=== PATIENT | male | born 1975 | race Two or more races ===

== ENCOUNTER 2024-08-12 12:53 | Inpatient (IN) | payer OTHER, SELFPAY ==
[2024-08-12] VITALS (11 sets, daily range): BP systolic 117–148; BP diastolic 90–115; BMI 26.8
[2024-08-12 11:53] LABS: % Basophils 0.5 % (0-2); % Eosinophils 0.7 % (0-6); % Immature Granulocytes 0.5 % (0-0.5); % Lymphocytes 8.9 % (20.5-51.1); % Monocytes 5.4 % (1.7-9.3); Absolute Basophils 0.1 10^3/uL (0-0.2); Absolute Eosinophils 0.1 10^3/uL (0-0.7); Absolute Immature Granulocytes 0.1 10^3/uL (0-0.05); Absolute Monocytes 0.6 10^3/uL (0.1-0.6); Absolute Neutrophils 9.8 10^3/uL (1.4-6.5); Hematocrit 49.3 % (39.0-52.0); Hemoglobin 16.4 g/dL (13.0-18.0); Mean Corp Hgb Conc. 33.3 g/dL (33.0-37.0); Mean Corpuscular Hgb 26.9 pg (27.0-31.0); Mean Platelet Volume 11.9 fL (7.4-10.4); Nucleated Red Blood Cells % 0 % (-); Platelet Count 233 10^3/uL (130-400); Red Blood Cell Count 6.09 10^6/uL (4.70-6.10); Red Cell Dist. Width 13.4 % (11.5-14.5); White Blood Cell Count 11.6 10^3/uL (4.8-10.8)
--- NOTE | 2024-08-12 11:53 | HPS.HSE ---
Family Physician
-
Family Physician: [facility] (Katie Serrano MD)
Chief Complaint
-
Chest pain/Inferior STEMI
History of Present Illness
48 yo male h/o asthma, non smoker, no family history of premature CAD who woke with sudden onset of chest pain around 7am, no other associated symptoms. He thought it was indigestion but pain persisted and he presented to the ED with 4/10 chest
pain. EKG with inferior MILES, STEMI alert activated. He was given Heparin, Brilinta, ASA and brought urgently to the cheesemaking laborer.
Medical History
Past Medical History
Past Medical History: Reports Asthma
Past Surgical History: Reports Orthopedic (R arm surgery for fracture @14) and Other (nasal polyp surgery)
Social History
Tobacco: Non-smoker
Alcohol: Occasional
Drug: None
Personal:
Living: With Family
Family History
Family History: Not pertinent
Allergies / Home Medications
Allergies reflects when Allergies were last updated in [facility].
Home Medications with original date entered in [facility]
Allergy/Medication List:
Allergies
Allergy/AdvReac Type Severity Reaction Status Date / Time
No Known Allergies Allergy Unverified 08/12/24 11:38
�Medication �Instructions �Recorded �Confirmed �Type
budesonide-formoterol HFA 80 2 puff inhalation BID 08/12/24 08/12/24 History
mcg-4.5 mcg/actuation aerosol
inhaler (Symbicort)
montelukast 10 mg tablet 10 mg PO DAILY 08/12/24 08/12/24 History
Review of Systems
-
Cardiac: Reports Chest Pain (09/10 on arrival to cheesemaking laborer)
Physical Exam
Vital Signs
Vital Signs
Temp Pulse Resp BP Pulse Ox
98.7 F 98 18 148/115 100
08/12/24 11:38 08/12/24 11:38 08/12/24 11:38 08/12/24 11:38 08/12/24 11:38
Physical Exam
General: Conversant (full exam deferred as being prepped and draped on cheesemaking laborer table for urgent procedure)
Laboratory Results
-
Pending
Data Reviewed
-
Medical Tests (Nuc Med, Echo, EKG etc): Report Reviewed by me
Impression/Plan
-
IMPRESSION:
Acute inferior STEMI
post PCI mid RCA 08/12/24
Elevated LFT's
Elevated glucose
Asthma
h/o nasal polyp surgery
PLAN:
Admit IVU post PCI
serial troponin to peak
Echo in am
trend LFT's
Check A1c
DAPT ASA/Brilinta (CM to eval cost)
initiate low dose BB and ACEi/ARB based on Echo
check CVE, initiate high intensity statin therapy
Cardiac rehab c/s
f/u DCA 2-4 weeks
continue to monitor on tele 48 hours
[2024-08-12 12:03] LABS: PT 12.7 Sec (11.4-14.6)
[2024-08-12 12:06] LABS: ALT (SGPT) 65 U/L (0-50); AST (SGOT) 117 U/L (17-59); Albumin 4.7 g/dl (3.5-5.0); Alkaline Phosphatase 90 U/L (38-126); Blood Urea Nitrogen 16 mg/dl (9-20); Calcium 9.7 mg/dl (8.4-10.2); Carbon Dioxide 23 mmol/L (22-30); Chloride 103 mmol/L (98-107); Estimated Creatinine Clearance 94 ml/min; Glucose 132 mg/dl (70-99); Potassium 4.4 mmol/L (3.5-5.1); Sodium 135 mmol/L (135-145); Total Bilirubin 0.8 mg/dl (0.2-1.3); Total Protein 7.4 g/dl (6.3-8.2); eGFR > 60.00
--- NOTE | 2024-08-12 12:07 | ED.GENMED ---
History of Present Illness
General
Chief Complaint: Chest Pain
Source: patient
Exam Limitations: none
Time Seen by Provider: 08/12/24 11:47
History of Present Illness
History of Present Illness:
48-year-old male sudden onset of chest pain this morning. Described as an indigestion feeling no radiation to the back or searing pain. No diaphoresis or shortness of breath. No history of same. Persisted since 7 or 730 this morning.
Past History
Past History
ED Past Medical History: Asthma
Social History
Tobacco: Non-smoker
Personal:
Living: with family
Review of Systems
Review of Systems
All Other Systems: Not applicable
Constitutional: Denies fever
Respiratory: Reports no symptoms
ABD/GI: Reports no symptoms; Denies bloody stools or black stools
Phy Exam
Physical Exam
Physical Exam:
GENERAL: Alert and oriented in no apparent distress
EYE: Orbits normal.
NECK: Supple
CARDIAC: Regular rate and rhythm without any obvious murmurs.
LUNGS: Clear breath sounds,normal
ABDOMEN: Soft, without focal tenderness or distention
NEUROLOGICAL: Alert and oriented , grossly non-focal
SKIN: Warm and dry, no rash or lesion, no discoloration, skin intact.
MUSCULOSKELETAL: No edema,no deformity.Good color
PSYCH: Normal and appropriate interaction.
Scores
Heart Score for Chest Pain Patients
STEMI patient?: Yes
Course
Orders/Labs/Results
Orders:
Orders
08/12/24 11:32
ECG [Electrocardiogram (*1)] Urgent
Reason for Study: Chest Pain
Electrocardiogram (*1) Urgent
Reason for Study: Chest Pain
EKG- Treatment ONCE
EKG- Treatment ONCE
08/12/24 11:43
Complete Blood Count/With Diff Urgent
Comprehensive Metabolic Panel Urgent
PT/INR [Prothrombin Time] Urgent
Troponin I Urgent
08/12/24 11:45
Ticagrelor [Brilinta] 180 mg .ROUTE .STK-MED ONE
08/12/24 11:46
Aspirin Chewable [Low Strength Aspirin] 324 mg .ROUTE .STK-MED ONE
Heparin 5,000 units .ROUTE .STK-MED ONE
08/12/24 11:49
Heparin 1000 Units/500 ml [Heparin] 1,000 units in 500 ml .ROUTE .STK-MED
Heparin Sodium,Porcine/Ns/Pf [Heparin 2000 Units/1000 ml] 2,000 unit in 1,000 ml .ROUTE .STK-MED
Lidocaine HCl/Pf [Xylocaine-Mpf 1% Vial] 100 mg .ROUTE .STK-MED ONE
Nitroglycerin [Tridil] 1,500 mcg .ROUTE .STK-MED ONE
Verapamil Injectable [Isoptin/Verapamil Injection] 5 mg .ROUTE .STK-MED ONE
08/12/24 11:57
Fentanyl Citrate/Pf [Sublimaze] 100 mcg .ROUTE .STK-MED ONE
Heparin 10,000 units .ROUTE .STK-MED ONE
Midazolam HCl [Versed] 2 mg .ROUTE .STK-MED ONE
Abnormal Lab Results
08/12/24
11:43
WBC 11.6 H 10^3/uL
(4.8-10.8)
MCH 26.9 L pg
(27.0-31.0)
MPV 11.9 H fL
(7.4-10.4)
Abs Immat Gran (auto) 0.1 H 10^3/uL
(0-0.05)
Absolute Neuts (auto) 9.8 H 10^3/uL
(1.4-6.5)
Absolute Lymphs (auto) 1.0 L 10^3/uL
(1.2-3.4)
Neutrophils % 84.0 H %
(42.2-75.2)
Lymphocytes % 8.9 L %
(20.5-51.1)
Glucose 132 H mg/dl
(70-99)
AST 117 H U/L
(17-59)
ALT 65 H U/L
(0-50)
08/12/24 11:43
08/12/24 11:43
Vital Signs
Initial and Last Documented VS:
Initial Vital Signs
Temp Pulse Resp BP Pulse Ox
98.7 F 98 18 148/115 100
08/12/24 11:38 08/12/24 11:38 08/12/24 11:38 08/12/24 11:38 08/12/24 11:38
Last Documented Vital Signs
Temp Pulse Resp BP Pulse Ox
98.7 F 98 18 148/115 100
08/12/24 11:38 08/12/24 11:38 08/12/24 11:38 08/12/24 11:38 08/12/24 11:38
*EKG
Interpreted by ED Provider?: Yes
Interpretation: abnormal
Heart Rate: 89
Rate: normal
Rhythm: sinus and PVC's
[place]: normal axis
Interval: normal interval
Ischemia: ST elevation (Inferior lateral [place] with reciprocal ischemic changes)
*Marketing Manager Interpretation
Rate: normal
Interpretation: normal
Heart Rate: 78
Rhythm: sinus and PAC's
*Critical Care Note
Total Time (30-74mins, 75-104mins- exclusive of procedures): 15
Update Note
Update Note:
Immediately upon initial EKG evaluation STEMI alert was called. EKG was texted to the librarian head. Patient was given usual medications. Was assisted up towards the [facility] where the librarian head took over. Nothing clinically
or by history to be suspicious for dissection.
ED Attending Note
-
Portions of this chart may have been created with voice recognition software.� Occasional wrong word or��sound alike� substitutions may have occurred due to the inherent limitations of voice recognition software.
Discharge Plan
Departure
Patient Disposition: Admit
Presentation/result/management discussed w/ accepting MD/DO: Ledy
Discharge Problem:
Inferior lateral [place]/acute
Prescriptions:
No Action
montelukast 10 mg Tablet
10 mg PO DAILY
budesonide-formoterol [Symbicort] 80-4.5 mcg/actuation Hfa Aerosol Inhaler
2 puff INHALATION BID
Referrals:
UNKNOWN - PT NOT,INTERVIEWE [Family Provider] -
Interventions
Interventions:
*Risk Screen - Suicide Last Done: 08/12/24 11:38
*General Assessment Last Done: 08/12/24 11:38
*Neglect/Abuse Screening Last Done: 08/12/24 11:38
*ED- Fall Risk Assessment Last Done: 08/12/24 11:38
*ED COVID-19 Vaccine History Last Done: 08/12/24 11:38
*Nursing Disposition Last Done: 08/12/24 11:54
ED- Cardiac Assessment Last Done: 08/12/24 11:38
Discharge Date and Time
Discharge Date/Time: 08/12/24 11:55
Print Language: IVORIAN
[2024-08-12 12:26] LABS: ACT-LR - POC 292 Seconds (116-155)
[2024-08-12 12:48] LABS: ACT-LR - POC 289 Seconds (116-155)
--- NOTE | 2024-08-12 13:10 | ITS.CL.CATH ---
Credit Professional - Catheterization
Cardiac Catheterization
Procedure Report:
LEFT HEART CATHETERIZATION AND CORONARY INTERVENTION
Date of Procedure: August 12, 2024
Referring: [place] emergency department
PROCEDURES:
1. Left heart catheterization, coronary angiogram.
2. Ultrasound-guided access.
3. Successful IVUS guided percutaneous coronary artery intervention of a hazy 90% mid RCA stenosis with one 3.5 x 26 mm Medtronic resolute drug-eluting stent, postdilated based on IVUS guidance with a 4.0 x 20 mm NC balloon at 18 rubina distally and a
4.5 x 15 mm NC balloon at 18 rub[place] proximally with an excellent angiographic and IVUS based result.
4. Intravascular ultrasound (IVUS)
INDICATION: Patient is a 48-year-old gentleman with past medical history of asthma, hyperlipidemia and hypertension, not on medications for anything other than asthma who presented with acute onset substernal chest pressure starting this morning
which initially felt like indigestion but given persistent nature of this he presented to the emergency room and was found to have significant ST elevations in the anterolateral and posterior leads concerning for an acute ST elevation [place]. Patient
was loaded with full dose aspirin, 180 mg of Brilinta along with 5000 units of IV unfractionated heparin and emergently brought up to the heart catheterization lab after detailed informed consent was obtained.
ACCESS: Right radial artery, 6 [place] sheath, under ultrasound guidance
Ultrasound was utilized for vascular access. The radial artery was visualized under ultrasound, and the vessel was patent and pulsatile. An image was stored permanently in the patient's medical record. Under direct ultrasound guidance, a 6 [place]
sheath was inserted into the artery using a micropuncture kit through a modified Seldinger technique.
HEMODYNAMICS : (mmHg)
AO (s/d) : 131/15
LV (s/d) : 132/101
LVEDP : 30
CORONARY FINDINGS
DOMINANCE: Right
LEFT MAIN: The left main is a large-caliber vessel which gives rise to the left anterior descending artery and the left circumflex artery. There is minimal luminal irregularities.
LEFT ANTERIOR DESCENDING: The left anterior descending artery is a medium to large caliber vessel which gives rise to 1 large caliber diagonal branch as it courses to the anterior interventricular groove and wraps around the apex. There is mild
diffuse atherosclerotic plaque.
CIRCUMFLEX: The left circumflex artery is a medium caliber vessel which gives rise to 1 major obtuse marginal branch and a left posterolateral branch. There is mild diffuse atherosclerotic plaque.
RIGHT CORONARY ARTERY: The right coronary artery is a large-caliber, dominant vessel which gives rise to the right posterior descending artery and the right posterolateral system. Proximal RCA has severe tortuosity with a hairpin turn with a hazy
90% thrombotic stenosis in the mid RCA just distal to the bend which is the likely culprit for presenting ACS and was intervened on as with details below. Proximal and distal RCA has mild diffuse atherosclerotic plaque.
CORONARY INTERVENTION: The right coronary artery was selectively engaged using a 6 [place] JR4 guide. Additional heparin was given to maintain a therapeutic ACT throughout the case. A 0.014 190 cm run-through coronary wire was successfully
navigated across the mid RCA stenosis into the distal vessel. The lesion was predilated using a 3.0 x 15 mm semi-compliant balloon at 14 rubina with full expansion. The lesion was subsequently stented using a 3.5 x 26 mm Medtronic resolute
drug-eluting stent. Using IVUS [place] eye catheter stent was postdilated using a 4.0 x 20 mm NC balloon at 18 rubina distally and a 4.5 x 15 mm NC balloon at 18 rubina proximally with an excellent angiographic and IVUS based result. Patient tolerated the
procedure well with no acute complications.
SEDATION: 48 minutes of procedural sedation was utilized. An independent anesthesiology medical doctor was present to assist with and help manage the patient's level of consciousness and physiologic status.
RADIATION SUMMARY: Fluoro Time (min): 10.5, Dose (mGy): 679.69, DAP (Gy.cm2) : 50.11
Closure Device: Vascular band over right radial artery, 11 cc of air.
CONCLUSIONS
1. Successful IVUS guided percutaneous coronary artery intervention of a hazy 90% mid RCA stenosis with one 3.5 x 26 mm Medtronic resolute drug-eluting stent, postdilated based on IVUS guidance with a 4.0 x 20 mm NC balloon at 18 rubina distally and a
4.5 x 15 mm NC balloon at 18 rubina proximally with an excellent angiographic and IVUS based result.
2. Significantly elevated LVEDP at 30 mmHg.
RECOMMENDATIONS
1. Uninterrupted dual antiplatelet therapy with daily baby aspirin and Brilinta 90 mg twice daily along with high intensity statin and beta-kassi as tolerated.
2. Wean radial band per protocol.
3. Full echocardiogram to assess biventricular function and rule out any significant valvular abnormalities.
4. Aggressive management of cardiovascular risk factors.
5. Referral for outpatient cardiac rehab.
Jane Villafana MD, FACC, [facility]
[2024-08-12] MEDS: TOPROL XL 25 MG PO (14:51)
--- NOTE | 2024-08-12 16:28 | CM ---
spoke to pt in room, he is prev indep, lives with his in a [address] home with no steps to enter. he denies any dc planning needs or dme's. plan i sfor dc to home when medically stable.
--- NOTE | 2024-08-12 16:49 | CM ---
[facility]yn [facility]- this med is [id number] and cost is $550. TT-Gabby Pappas
[2024-08-12] MEDS: LIPITOR 80 MG PO (18:04)
--- NOTE | 2024-08-12 18:17 | PTCARENOTE ---
Pt with acute inferior STEMI received from slab tripper post stent placed via right radial artery. Pt denied any discomfort. radial band removed as ordered without problem. Telemetry shows sinus rhythm with frequent reperfusion ectopy, up to 10 bts
NSVT, pt aware of this. Pt seen by nicholas Castaneda started. Pt OOB with minimal assistance, voiding in large amounts after lasix. Plan to monitor closely, trend troponins and do an ECHO on 08/13.
--- NOTE | 2024-08-12 19:22 | PTCARENOTE ---
Troponin level 258.0, notified, pt denies any discomfort, next troponin at 02:00.
[2024-08-12] MEDS: BRILINTA 90 MG PO (20:11)
[2024-08-12] MEDS: NON-FORMULARY ITEM 1 UNIT INH (23:05)
--- NOTE | 2024-08-12 23:36 | PTCARENOTE ---
Received patient at change of shift. SR on the monitor, HR in the 60s. No chest pain at this time. R radial dressing CDI. No complaints from pt at this time, call mcgee within reach.
[2024-08-13] VITALS (8 sets, daily range): BP systolic 97–133; BP diastolic 62–82
--- NOTE | 2024-08-13 02:48 | PTCARENOTE ---
EKG obtained with troponin in am showed STEMI. No chest pain reported by patient. EKG reviewed with CT surgery
[2024-08-13 03:08] LABS: Hematocrit 47.3 % (39.0-52.0); Hemoglobin 15.9 g/dL (13.0-18.0); Mean Corp Hgb Conc. 33.6 g/dL (33.0-37.0); Mean Corpuscular Hgb 26.8 pg (27.0-31.0); Mean Corpuscular Volume 79.8 fL (80.0-94.0); Mean Platelet Volume 12.2 fL (7.4-10.4); Platelet Count 213 10^3/uL (130-400); Red Blood Cell Count 5.93 10^6/uL (4.70-6.10); Red Cell Dist. Width 13.4 % (11.5-14.5); White Blood Cell Count 12.4 10^3/uL (4.8-10.8)
[2024-08-13 03:59] LABS: ALT (SGPT) 150 U/L (0-50); AST (SGOT) 724 U/L (17-59); Albumin 4.3 g/dl (3.5-5.0); Alkaline Phosphatase 79 U/L (38-126); Blood Urea Nitrogen 11 mg/dl (9-20); Calcium 9.7 mg/dl (8.4-10.2); Carbon Dioxide 22 mmol/L (22-30); Chloride 107 mmol/L (98-107); Estimated Creatinine Clearance 94 ml/min; Glucose 97 mg/dl (70-99); HDL Cholesterol 39 mg/dl; LDL Cholesterol, Calculated 201 mg/dl; Potassium 3.9 mmol/L (3.5-5.1); Sodium 138 mmol/L (135-145); Total Bilirubin 1.4 mg/dl (0.2-1.3); Total Cholesterol 288 mg/dl (50-199); Total Protein 6.7 g/dl (6.3-8.2); Triglyceride 242 mg/dl (10-149); Very Low Density Lipoprotein 48 mg/dl (0-30); eGFR > 60.00
[2024-08-13] MEDS: NON-FORMULARY ITEM 1 UNIT INH ×2 (08:04→20:14)
--- NOTE | 2024-08-13 08:40 | W.PN.CARDCBS ---
Today's Communication / Plan
-
continue post NM care
Echo today
Evaluate cost of prasugrel/Effient
Impression / Plan
-
PCP: Katie Serrano MD
CDY: None, new to Dr. Herrmann
48-year-old gentleman with past medical history of asthma, hyperlipidemia and hypertension, not on medications for anything other than asthma who presented with acute onset substernal chest pressure starting this morning which initially felt like
indigestion but given persistent nature of this he presented to the emergency room and was found to have significant ST elevations in the anterolateral and posterior leads concerning for an acute ST elevation [place]. Patient was loaded with full dose
aspirin, 180 mg of Brilinta along with 5000 units of IV unfractionated heparin and emergently brought up to the heart catheterization lab after detailed informed consent was obtained.
IMPRESSION:
Acute inferior STEMI
post PCI mid RCA 08/12/24
Elevated LVEDP
NSVT
transaminitis
Elevated glucose
HTN
Hyperlipidemia
Asthma
h/o nasal polyp surgery
PLAN:
Post PCI, denies cp
tele with some reperfusion NSVT, AIVR
Troponin peaked at 258 and trending down
Echo today
LVEDP 30 during cath, IV lasix x 1 -1680cc, will monitor, denies sob
LFT's continue to trend up, most likely d/t NM, continue to trend
Hbg A1c pending
DAPT ASA/Brilinta (unable to afford Brilinta, will check prasugrel cost if unable to afford will switch to Plavix)
titrate BB as HR/BP allows, pending Echo will add ACEi/ARB if BP allows
LDL 201, TG 242, continue high intensity statin therapy
Cardiac rehab c/s
f/u DCA 2-4 weeks
continue to monitor on tele at least another 24-48 hours
08/12/24 [facility]:
1. Left heart catheterization, coronary angiogram.
2. Ultrasound-guided access.
3. Successful IVUS guided percutaneous coronary artery intervention of a hazy 90% mid RCA stenosis with one 3.5 x 26 mm Medtronic resolute drug-eluting stent, postdilated based on IVUS guidance with a 4.0 x 20 mm NC balloon at 18 rubina distally and a
4.5 x 15 mm NC balloon at 18 rubina proximally with an excellent angiographic and IVUS based result.
4. Intravascular ultrasound (IVUS)
Progress Note - Wire Wrapping Machine Operator
Subjective
Date of Service: August 13, 2024
denies cp, sob
Objective
Labs:
08/13/24 02:16
08/13/24 02:16
Labs
Hgb 15.9 g/dL (13.0-18.0) 08/13/24 02:16
Hct 47.3 % (39.0-52.0) 08/13/24 02:16
Plt Count 213 10^3/uL (130-400) 08/13/24 02:16
PT 12.7 Sec (11.4-14.6) 08/12/24 11:43
INR 0.90 08/12/24 11:43
Sodium 138 mmol/L (135-145) 08/13/24 02:16
Potassium 3.9 mmol/L (3.5-5.1) 08/13/24 02:16
BUN 11 mg/dl (9-20) 08/13/24 02:16
Creatinine 0.9 mg/dL (0.7-1.3) 08/13/24 02:16
Glucose 97 mg/dl (70-99) 08/13/24 02:16
Troponins
08/12/24 08/12/24 08/13/24
11:43 18:00 02:16
Troponin I 1.610 H* 258.000 H* D 157.000 H*
Vital Signs and I&O:
Vital Signs
Temp Pulse Resp BP Pulse Ox
99.7 F 65 20 97/62 94
08/13/24 06:52 08/13/24 07:45 08/13/24 06:52 08/13/24 06:52 08/13/24 06:52
Vital Signs
Temp Pulse Resp BP Pulse Ox
99.7 F 65 20 97/62 94
08/13/24 06:52 08/13/24 07:45 08/13/24 06:52 08/13/24 06:52 08/13/24 06:52
Intake & Output
08/11/24 08/12/24 08/13/24 08/14/24
06:59 06:59 06:59 06:59
Intake Total 820 / 820
Output Total 2500 / 2500
Balance -1680 / -1680
Physical Exam
Physical Exam
NAD< AOX3
S1, S2, RRR
CTAB, non labored, no wheeze
SNTND bsx4
R rad site c/d/i
[2024-08-13] MEDS: BRILINTA 90 MG PO (09:08)
[2024-08-13] MEDS: LOW STRENGTH ASPIRIN 81 MG PO (09:09)
[2024-08-13] MEDS: TOPROL XL 25 MG PO (09:09)
[2024-08-13 09:20] LABS: Glycohemoglobin (HgbA1c) 5.7 % (4.0-5.6)
--- NOTE | 2024-08-13 11:58 | CM ---
priced effient [facility]- his copay is zero dollars.
--- NOTE | 2024-08-13 12:49 | W.PN.CARDCBS ---
Today's Communication / Plan
-
PLAN:
1. Patient is status post successful PCI of mid RCA stenosis with 3.5 x 26 mm Medtronic resolute drug-eluting stent, postdilated using IVUS guidance with a 4.0 x 20 mm NC balloon at 18 rubina distally and 4.5 x 15 mm NC balloon at 18 rubina proximally
with an excellent angiographic and IVUS based result. Uninterrupted dual antiplatelet therapy with daily baby aspirin and Brilinta for now. We looked into the cost of the Brilinta which is not affordable. Effient is affordable so our plan will be
to prasugrel loaded with 60 mg tomorrow morning and continue daily 10 mg of prasugrel in the setting of ACS.
2. Lab work and vital signs reviewed with troponin peak at 258, trending down. Recheck EKG this morning showing progressive changes from recent inferior posterior lateral [place].
3. Echocardiogram is pending this morning.
4. Patient is completely symptom-free and doing well. Ventricular ectopy has decreased significantly on telemetry. He denies any issues at the right radial access site.
5. Blood pressures at times are borderline so for now we will continue with Toprol-XL 25 mg daily and hold off on any additional medications.
6. LVEDP was 30 mmHg at the time of the heart catheterization and he received 1 dose of Lasix with urine output of 1680 cc. He is on room air breathing comfortably so we will hold off on any further Lasix for now and continue to monitor clinically.
7. Aggressive management of cardiovascular risk factors especially with LDL of 201 with high intensity statin, will continue 80 mg of atorvastatin daily with goal LDL of less than 55.
8. Hemoglobin A1c is pending.
9. Extensive counseling in regards to heart healthy lifestyle modifications and discussion regarding outpatient referral for cardiac rehab.
10. Anticipate discharge in the next 24 to 48 hours.
We will work on setting up outpatient follow-up for cardiology
Impression / Plan
-
PCP: Katie Serrano MD
CDY: None, new to Dr. Herrmann
48-year-old gentleman with past medical history of asthma, hyperlipidemia and hypertension, not on medications for anything other than asthma who presented with acute onset substernal chest pressure starting this morning which initially felt like
indigestion but given persistent nature of this he presented to the emergency room and was found to have significant ST elevations in the anterolateral and posterior leads concerning for an acute ST elevation [place]. Patient was loaded with full dose
aspirin, 180 mg of Brilinta along with 5000 units of IV unfractionated heparin and emergently brought up to the heart catheterization lab after detailed informed consent was obtained.
IMPRESSION:
Acute inferior STEMI
post PCI mid RCA 08/12/24
Elevated LVEDP
NSVT
transaminitis
Elevated glucose
HTN
Hyperlipidemia
Asthma
h/o nasal polyp surgery
08/12/24 [facility]:
1. Left heart catheterization, coronary angiogram.
2. Ultrasound-guided access.
3. Successful IVUS guided percutaneous coronary artery intervention of a hazy 90% mid RCA stenosis with one 3.5 x 26 mm Medtronic resolute drug-eluting stent, postdilated based on IVUS guidance with a 4.0 x 20 mm NC balloon at 18 rubina distally and a
4.5 x 15 mm NC balloon at 18 rubina proximally with an excellent angiographic and IVUS based result.
4. Intravascular ultrasound (IVUS)
PLAN:
1. Patient is status post successful PCI of mid RCA stenosis with 3.5 x 26 mm Medtronic resolute drug-eluting stent, postdilated using IVUS guidance with a 4.0 x 20 mm NC balloon at 18 rubina distally and 4.5 x 15 mm NC balloon at 18 rubina proximally
with an excellent angiographic and IVUS based result. Uninterrupted dual antiplatelet therapy with daily baby aspirin and Brilinta for now. We looked into the cost of the Brilinta which is not affordable. Effient is affordable so our plan will be
to prasugrel loaded with 60 mg tomorrow morning and continue daily 10 mg of prasugrel in the setting of ACS.
2. Lab work and vital signs reviewed with troponin peak at 258, trending down. Recheck EKG this morning showing progressive changes from recent inferior posterior lateral GA.
3. Echocardiogram is pending this morning.
4. Patient is completely symptom-free and doing well. Ventricular ectopy has decreased significantly on telemetry. He denies any issues at the right radial access site.
5. Blood pressures at times are borderline so for now we will continue with Toprol-XL 25 mg daily and hold off on any additional medications.
6. LVEDP was 30 mmHg at the time of the heart catheterization and he received 1 dose of Lasix with urine output of 1680 cc. He is on room air breathing comfortably so we will hold off on any further Lasix for now and continue to monitor clinically.
7. Aggressive management of cardiovascular risk factors especially with LDL of 201 with high intensity statin, will continue 80 mg of atorvastatin daily with goal LDL of less than 55.
8. Hemoglobin A1c is pending.
9. Extensive counseling in regards to heart healthy lifestyle modifications and discussion regarding outpatient referral for cardiac rehab.
10. Anticipate discharge in the next 24 to 48 hours.
We will work on setting up outpatient follow-up for cardiology
Progress Note - Remnant Sorter
Subjective
Date of Service: August 13, 2024
Doing well no active complaints.
Objective
Labs:
08/13/24 02:16
08/13/24 02:16
Labs
Hgb 15.9 g/dL (13.0-18.0) 08/13/24 02:16
Hct 47.3 % (39.0-52.0) 08/13/24 02:16
Plt Count 213 10^3/uL (130-400) 08/13/24 02:16
PT 12.7 Sec (11.4-14.6) 08/12/24 11:43
INR 0.90 08/12/24 11:43
Sodium 138 mmol/L (135-145) 08/13/24 02:16
Potassium 3.9 mmol/L (3.5-5.1) 08/13/24 02:16
BUN 11 mg/dl (9-20) 08/13/24 02:16
Creatinine 0.9 mg/dL (0.7-1.3) 08/13/24 02:16
Glucose 97 mg/dl (70-99) 08/13/24 02:16
Troponins
08/12/24 08/12/24 08/13/24
11:43 18:00 02:16
Troponin I 1.610 H* 258.000 H* D 157.000 H*
Vital Signs and I&O:
Vital Signs
Temp Pulse Resp BP Pulse Ox
98.6 F 86 20 133/77 96
08/13/24 11:17 08/13/24 11:30 08/13/24 11:17 08/13/24 11:16 08/13/24 11:17
Vital Signs
Temp Pulse Resp BP Pulse Ox
98.6 F 86 20 133/77 96
08/13/24 11:17 08/13/24 11:30 08/13/24 11:17 08/13/24 11:16 08/13/24 11:17
Intake & Output
08/11/24 08/12/24 08/13/24 08/14/24
06:59 06:59 06:59 06:59
Intake Total 820 / 820 120 / 120
Output Total 2500 / 2500
Balance -1680 / -1680 120 / 120
Physical Exam
Physical Exam
NAD< AOX3
S1, S2, RRR
CTAB, non labored, no wheeze
SNTND bsx4
R rad site c/d/i, no evidence of hematoma or bruit
Warm extremities without significant edema
[2024-08-13] MEDS: LIPITOR 80 MG PO (17:57)
--- NOTE | 2024-08-13 19:49 | PTCARENOTE ---
Pt denies any discomfort. Pt encouraged to walk in halls which he did at a slow pace without problem. Echo done at bedside. Telemetry shows sinus rhythm.
--- NOTE | 2024-08-13 23:45 | PTCARENOTE ---
Received patient at change of shift. SR on the monitor, HR in the 70s. R radial dressing CDI. Patient ambulating in the halls with his . No complaints from pt at this time, call mcgee within reach.
[2024-08-14 04:42] VITALS: BP 106/74
[2024-08-14 05:23] LABS: Hematocrit 45.6 % (39.0-52.0); Hemoglobin 15.2 g/dL (13.0-18.0); Mean Corp Hgb Conc. 33.3 g/dL (33.0-37.0); Mean Corpuscular Hgb 26.7 pg (27.0-31.0); Mean Corpuscular Volume 80.1 fL (80.0-94.0); Mean Platelet Volume 11.7 fL (7.4-10.4); Platelet Count 193 10^3/uL (130-400); Red Blood Cell Count 5.69 10^6/uL (4.70-6.10); Red Cell Dist. Width 13.3 % (11.5-14.5); White Blood Cell Count 9.7 10^3/uL (4.8-10.8)
[2024-08-14 05:47] LABS: ALT (SGPT) 106 U/L (0-50); AST (SGOT) 261 U/L (17-59); Albumin 4.5 g/dl (3.5-5.0); Alkaline Phosphatase 71 U/L (38-126); Blood Urea Nitrogen 15 mg/dl (9-20); Calcium 9.2 mg/dl (8.4-10.2); Carbon Dioxide 21 mmol/L (22-30); Chloride 104 mmol/L (98-107); Estimated Creatinine Clearance 94 ml/min; Glucose 94 mg/dl (70-99); Sodium 138 mmol/L (135-145); Total Bilirubin 1.9 mg/dl (0.2-1.3); Total Protein 6.8 g/dl (6.3-8.2); eGFR > 60.00
[2024-08-14 06:56] VITALS: BP 106/71
[2024-08-14] MEDS: NON-FORMULARY ITEM 2 UNIT INH (07:17)
--- NOTE | 2024-08-14 08:01 | PN.CDI ---
CDI
- -
CDI:
Physician Documentation Request
Admit Date: 08/12/24 12:53
Dear Doctor /DIVISION ENGINEER,
Please review the following and provide your response in the progress notes.
Clinical Indicators:
Pt admitted with Acute Inferior STEMI s/p PCI of RCA.
Documented in cardiac cath, ' Significantly elevated LVEDP at 30 mmHg...'
Progress note 08/13,' LVEDP 30 during cath, IV Lasix x 1 -1680cc, will monitor...'
ECHO 08/13,' Estimated left ejection fraction is 50 to 55% by visual estimation.'
Please provide the diagnosis associated with the LVEDP and IV Lasix Use above :
Acute Diastolic CHF
Elevated LVEDP only
Other (please specify)
Use of terms such as suspected, likely, concern for, or probable (associated with a specific diagnosis that is being evaluated, monitored, or treated as if it exists) are acceptable and can be coded in the inpatient setting, when documented at the
time of discharge.
Thank you,
Ave Dia RN
CDI Specialist
[place] [facility]
Please use your independent medical judgment in providing your response.
--- NOTE | 2024-08-14 08:11 | PN.CDI ---
CDI
- -
CDI:
Physician Documentation Request
Admit Date: 08/12/24 12:53
Dear Doctor /PIG MACHINE SUPERVISOR,
Please review the following and provide your response in the progress notes.
Clinical Indicators:
Pt admitted with Acute Inferior STEMI s/p PCI of RCA
Progress note 08/13,' LFT's continue to trend up, most likely d/t OR, continue to trend...'
Progress note 08/13, ' Blood pressures at times are borderline so for now we will continue with Toprol-XL 25 mg daily and hold off on any additional medications..'
Liver functions as below
08/12/24 08/13/24 08/14/24
11:43 02:16 04:50
AST 117 H 724 H* 261 H
ALT 65 H 150 H 106 H
Based on the above, could you clarify in the progress notes, the appropriate diagnosis, if significant, that supports the above abnormalities and additional evaluation, monitoring and/or treatment rendered:
Shock liver
Elevated LFTs due to OR only
Other (please specify)
Use of terms such as suspected, likely, concern for, or probable (associated with a specific diagnosis that is being evaluated, monitored, or treated as if it exists) are acceptable and can be coded in the inpatient setting, when documented at the
time of discharge.
Thank you,
Ave Dia RN
CDI Specialist
[place] [facility]
Please use your independent medical judgment in providing your response.
[2024-08-14] MEDS: TOPROL XL 25 MG PO (09:06)
[2024-08-14] MEDS: EFFIENT 60 MG PO (09:06)
[2024-08-14] MEDS: LOW STRENGTH ASPIRIN 81 MG PO (09:06)
--- NOTE | 2024-08-14 10:09 | W.DS.TRANS ---
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
-
Discharge Instructions:
Discharge Diagnosis/Procedures STEMI, Angioplasty with stent to Right Coronary
artery
Diet Low Cholesterol
Activity No strenuous activity
Additional Activity For 2 weeks- no heavy lifting or strenuous
activity. OK to go for easy walks and use stairs
.
Driving Restrictions No driving for 24 hours
Other Services Cardiac Rehab
Instructions:
Stand-Alone Forms: DC Instructions- Cath/EP Lab
Changes to Home Medications: Yes
Discharge Medications:
DC Medications w/original date entered in [facility]
montelukast 10 mg tablet 10 mg PO DAILY Allergies 08/12/24
aspirin 81 mg chewable tablet 81 mg PO DAILY #1 tab 08/13/24
atorvastatin 80 mg tablet 80 mg PO QPM #90 tabs 08/13/24
budesonide-formoterol HFA 160 mcg-4.5 mcg/actuation aerosol inhaler (Symbicort) 2 puff inhalation BID 08/13/24
prasugrel HCl 10 mg tablet 10 mg PO DAILY #90 tabs 08/13/24
metoprolol succinate 25 mg tablet,extended release 24 hr 25 mg PO DAILY #90 tabs 08/14/24
Home Medication Changes
NEW: aspirin, atorvastatin, prasugrel, metoprolol succinate
Pending Results: No
--- NOTE | 2024-08-14 11:17 | PTCARENOTE ---
Pt denies any discomfort. Pt seen by and Lennie Martinez, JOSE. Telemetry and IV device removed. Discharge instructions reviewed with pt and his regarding activity and driving guidelines, medications and their possible side effects, wound
care, heart healthy diet, reporting cares and concerns and follow up appt's. Excellent understanding taught back. Pt escorted out via wheelchair and discharged to home. Pt and understand that they will go to a different [facility] to get prasugrel.
--- NOTE | 2024-08-14 14:13 | W.PN.CARDCBS ---
Today's Communication / Plan
-
Prasugrel load this morning then start 10mg daily
followup at [facility] as scheduled
home today
Impression / Plan
-
PCP: Katie Serrano MD
CDY: None, new to Dr. Herrmann
48 y/o, new onset acute onset SSCP and presented to ER, EKG with acute inferior STEMI.
Urgent LHC, s/p mid RCA PCI.
IMPRESSION:
Acute inferior STEMI
post PCI mid RCA 08/12/24
Elevated LVEDP only, resolved, d/t STEMI
NSVT
Elevated transaminase, resolving, d/t STEMI
Elevated glucose
HTN
Hyperlipidemia
Asthma
h/o nasal polyp surgery
PLAN:
Tele- NSR 80s, occasional PVC
no NSVT in last 24 hours
EKG with resolving OR
Radial cath site stable
DAPT w/asa, prasugrel- ticagrelor too costly and changed this morning with prasugrel 60mg load, home on 10mg daily
echo results noted- nml LVSF, EF 50-55%, mild inferior/inferolat HK
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
Peak troponin 258
elevated transaminase- noted and resolving, due to OR only
tolerating new start metoprolol xl
Soft BP 100s- hold off on carlos/arb and re-eval in outpt setting
lipid profile noted- high intensity statin therapy with atorvastatin 80/d
HgbA1C 5.7
Cardiac rehab
Extensive counseling in regards to heart healthy lifestyle modifications
Followup at [facility] with [employer] and with Dr. Villafana thereafter
all questions answered
home today
PREADMIT DATA
48-year-old gentleman with past medical history of asthma, hyperlipidemia and hypertension, not on medications for anything other than asthma who presented with acute onset substernal chest pressure starting this morning which initially felt like
indigestion but given persistent nature of this he presented to the emergency room and was found to have significant ST elevations in the anterolateral and posterior leads concerning for an acute ST elevation [place]. Patient was loaded with full dose
aspirin, 180 mg of Brilinta along with 5000 units of IV unfractionated heparin and emergently brought up to the heart catheterization lab after detailed informed consent was obtained.
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
Subjective
Date of Service: August 14, 2024
Denies cp/palps/dyspnea
felt a little wheezy this morning, but no dyspnea or SOB
oob ambulating
cath site without pain
Objective
Labs:
08/14/24 04:50
08/14/24 04:50
Labs
Hgb 15.2 g/dL (13.0-18.0) 08/14/24 04:50
Hct 45.6 % (39.0-52.0) 08/14/24 04:50
Plt Count 193 10^3/uL (130-400) 08/14/24 04:50
PT 12.7 Sec (11.4-14.6) 08/12/24 11:43
INR 0.90 08/12/24 11:43
Sodium 138 mmol/L (135-145) 08/14/24 04:50
Potassium 4.0 mmol/L (3.5-5.1) 08/14/24 04:50
BUN 15 mg/dl (9-20) 08/14/24 04:50
Creatinine 0.9 mg/dL (0.7-1.3) 08/14/24 04:50
Glucose 94 mg/dl (70-99) 08/14/24 04:50
Troponins
08/12/24 08/12/24 08/13/24
11:43 18:00 02:16
Troponin I 1.610 H* 258.000 H* D 157.000 H*
Vital Signs and I&O:
Vital Signs
Temp Pulse Resp BP Pulse Ox
99.1 F 88 16 106/71 94
08/14/24 06:56 08/14/24 10:00 08/14/24 07:24 08/14/24 06:56 08/14/24 09:10
Vital Signs
Temp Pulse Resp BP Pulse Ox
99.1 F 88 16 106/71 94
08/14/24 06:56 08/14/24 10:00 08/14/24 07:24 08/14/24 06:56 08/14/24 09:10
Intake & Output
08/12/24 08/13/24 08/14/24 08/15/24
06:59 06:59 06:59 06:59
Intake Total 820 / 820 120 / 120 180 / 180
Output Total 2500 / 2500
Balance -1680 / -1680 120 / 120 180 / 180
Physical Exam
Physical Exam
AAOx3, MAEE 5/5
RRR S1 S2 no murmurs
CTA bilat, non labored
soft abd, + bs
right radial cath site JANUARY, no ht/bleeding, non tender
bilat extremities w/palpable distal pulses, no edema
--- NOTE | 2024-08-14 18:47 | W.PN.CARDCBS ---
Today's Communication / Plan
-
PLAN:
1. Patient is status post successful PCI of mid RCA stenosis with 3.5 x 26 mm Medtronic resolute drug-eluting stent, postdilated using IVUS guidance with a 4.0 x 20 mm NC balloon at 18 rubina distally and 4.5 x 15 mm NC balloon at 18 rubina proximally
with an excellent angiographic and IVUS based result. Uninterrupted dual antiplatelet therapy with daily baby aspirin and Brilinta for now. We looked into the cost of the Brilinta which is not affordable. Effient is affordable and therefore he
was switched over to a proximal load this morning with plan to continue daily 10 mg of prasugrel along with baby aspirin at least for 1 year. Patient was counseled extensively on not missing any doses and the importance of compliance especially if
he has any future dental work or any other procedures do not stop these medications without discussion with cardiology.
2. Lab work and vital signs reviewed with troponin peak at 258. ECG this morning with progression of recent [place].
3. Echocardiogram was reviewed by myself which showed low normal LVEF with hypokinesis of the inferior and inferolateral gonzáles.
4. Telemetry with no significant ventricular ectopy. No issues still at the right radial site.
5. Given borderline blood pressures no other cardiac medications were added. Continue Toprol-XL 25 mg daily for now.
6. We briefly discussed suggest active wheezing for patient in the setting of known asthma. For now we will continue Toprol-XL and reassess as an outpatient in case this needs to be changed. Of note he was on 2 days of Brilinta however there was
no clear shortness of breath reported. He is now on Effient anyway.
7. Aggressive management of cardiovascular risk factors especially with LDL of 201 with high intensity statin, will continue 80 mg of atorvastatin daily with goal LDL of less than 55. Plan to reassess as an outpatient.
8. Hemoglobin A1c is 5.7 consistent with prediabetes. Aggressive lifestyle modification counseled, plan to reassess on outpatient.
9. Extensive counseling in regards to heart healthy lifestyle modifications and discussion regarding outpatient referral for cardiac rehab.
10. Anticipate discharge in the next 24 to 48 hours.
Patient was given IV Lasix per acute diastolic heart failure in the setting of an ST elevation [place] however his volume status has since then improved with no further need for ongoing diuretic therapy.
Of note patient also had elevated LFTs in the setting of acute coronary syndrome versus possible baseline hepatic steatosis though we do not have baseline LFTs as an outpatient, regardless they are downtrending. No evidence of shock liver. We will
continue to monitor in the setting of high intensity statin use.
Outpatient cardiology follow-up has been set up. We also discussed a lot in regards to upcoming travel plans and I reassured them that by September he should be okay to travel safely.
We also counseled him in regards to outpatient cardiac rehab and importance of this.
Total Time spent: 55mins
Impression / Plan
-
PCP: Katie Serrano MD
CDY: None, new to Dr. Herrmann
48 y/o, new onset acute onset SSCP and presented to ER, EKG with acute inferior STEMI.
Urgent C, s/p mid RCA PCI.
IMPRESSION:
Acute inferior STEMI
post PCI mid RCA 08/12/24
Elevated LVEDP only, resolved, d/t STEMI
NSVT
Elevated transaminase, resolving, d/t STEMI
Elevated glucose
HTN
Hyperlipidemia
Asthma
h/o nasal polyp surgery
PLAN:
1. Patient is status post successful PCI of mid RCA stenosis with 3.5 x 26 mm Medtronic resolute drug-eluting stent, postdilated using IVUS guidance with a 4.0 x 20 mm NC balloon at 18 rubina distally and 4.5 x 15 mm NC balloon at 18 rubina proximally
with an excellent angiographic and IVUS based result. Uninterrupted dual antiplatelet therapy with daily baby aspirin and Brilinta for now. We looked into the cost of the Brilinta which is not affordable. Effient is affordable and therefore he
was switched over to a proximal load this morning with plan to continue daily 10 mg of prasugrel along with baby aspirin at least for 1 year. Patient was counseled extensively on not missing any doses and the importance of compliance especially if
he has any future dental work or any other procedures do not stop these medications without discussion with cardiology.
2. Lab work and vital signs reviewed with troponin peak at 258. ECG this morning with progression of recent [place].
3. Echocardiogram was reviewed by myself which showed low normal LVEF with hypokinesis of the inferior and inferolateral gonzáles.
4. Telemetry with no significant ventricular ectopy. No issues still at the right radial site.
5. Given borderline blood pressures no other cardiac medications were added. Continue Toprol-XL 25 mg daily for now.
6. We briefly discussed suggest active wheezing for patient in the setting of known asthma. For now we will continue Toprol-XL and reassess as an outpatient in case this needs to be changed. Of note he was on 2 days of Brilinta however there was
no clear shortness of breath reported. He is now on Effient anyway.
7. Aggressive management of cardiovascular risk factors especially with LDL of 201 with high intensity statin, will continue 80 mg of atorvastatin daily with goal LDL of less than 55. Plan to reassess as an outpatient.
8. Hemoglobin A1c is 5.7 consistent with prediabetes. Aggressive lifestyle modification counseled, plan to reassess on outpatient.
9. Extensive counseling in regards to heart healthy lifestyle modifications and discussion regarding outpatient referral for cardiac rehab.
10. Anticipate discharge in the next 24 to 48 hours.
Patient was given IV Lasix per acute diastolic heart failure in the setting of an ST elevation [place] however his volume status has since then improved with no further need for ongoing diuretic therapy.
Of note patient also had elevated LFTs in the setting of acute coronary syndrome versus possible baseline hepatic steatosis though we do not have baseline LFTs as an outpatient, regardless they are downtrending. No evidence of shock liver. We will
continue to monitor in the setting of high intensity statin use.
Outpatient cardiology follow-up has been set up. We also discussed a lot in regards to upcoming travel plans and I reassured them that by September he should be okay to travel safely.
We also counseled him in regards to outpatient cardiac rehab and importance of this.
PREADMIT DATA
48-year-old gentleman with past medical history of asthma, hyperlipidemia and hypertension, not on medications for anything other than asthma who presented with acute onset substernal chest pressure starting this morning which initially felt like
indigestion but given persistent nature of this he presented to the emergency room and was found to have significant ST elevations in the anterolateral and posterior leads concerning for an acute ST elevation [place]. Patient was loaded with full dose
aspirin, 180 mg of Brilinta along with 5000 units of IV unfractionated heparin and emergently brought up to the heart catheterization lab after detailed informed consent was obtained.
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
Subjective
Date of Service: August 14, 2024
Doing well
Objective
Labs:
08/14/24 04:50
08/14/24 04:50
Labs
Hgb 15.2 g/dL (13.0-18.0) 08/14/24 04:50
Hct 45.6 % (39.0-52.0) 08/14/24 04:50
Plt Count 193 10^3/uL (130-400) 08/14/24 04:50
PT 12.7 Sec (11.4-14.6) 08/12/24 11:43
INR 0.90 08/12/24 11:43
Sodium 138 mmol/L (135-145) 08/14/24 04:50
Potassium 4.0 mmol/L (3.5-5.1) 08/14/24 04:50
BUN 15 mg/dl (9-20) 08/14/24 04:50
Creatinine 0.9 mg/dL (0.7-1.3) 08/14/24 04:50
Glucose 94 mg/dl (70-99) 08/14/24 04:50
Troponins
08/12/24 08/12/24 08/13/24
11:43 18:00 02:16
Troponin I 1.610 H* 258.000 H* D 157.000 H*
Vital Signs and I&O:
Vital Signs
Temp Pulse Resp BP Pulse Ox
99.1 F 88 16 106/71 94
08/14/24 06:56 08/14/24 10:00 08/14/24 07:24 08/14/24 06:56 08/14/24 09:10
Vital Signs
Temp Pulse Resp BP Pulse Ox
99.1 F 88 16 106/71 94
08/14/24 06:56 08/14/24 10:00 08/14/24 07:24 08/14/24 06:56 08/14/24 09:10
Intake & Output
08/12/24 08/13/24 08/14/24 08/15/24
06:59 06:59 06:59 06:59
Intake Total 820 / 820 120 / 120 180 / 180
Output Total 2500 / 2500
Balance -1680 / -1680 120 / 120 180 / 180
Physical Exam
Physical Exam
AAOx3, MAEE 5/5
RRR S1 S2 no murmurs
CTA bilat, non labored
soft abd, + bs
right radial cath site JANUARY, no ht/bleeding, non tender
bilat extremities w/palpable distal pulses, no edema
== END 2024-08-14 11:00 | disposition home or self-care (01) | DRG 321 ==
LOC: IVU 12:53
PROVIDERS: Nurse Practitioner Adult Health; ADMITTING PHYSICIAN Internal Medicine Interventional Cardiology; EMERGENCY PHYSICIAN Emergency Medicine
PROC: 4A023N7 Measurement of Cardiac Sampling and Pressure, Left Heart, Percutaneous Approach (ICD-10-PCS; 2024-08-12)
PROC: B240ZZ3 Ultrasonography of Single Coronary Artery, Intravascular (ICD-10-PCS; 2024-08-12)
PROC: B2111ZZ Fluoroscopy of Multiple Coronary Arteries using Low Osmolar Contrast (ICD-10-PCS; 2024-08-12)
PROC: 027034Z Dilation of Coronary Artery, One Artery with Drug-eluting Intraluminal Device, Percutaneous Approach (ICD-10-PCS; 2024-08-12)
DX: I21.19 ST elevation (STEMI) myocardial infarction involving other coronary artery of inferior wall (principal); I50.31 Acute diastolic (congestive) heart failure; I47.20 Ventricular tachycardia, unspecified; K30 Functional dyspepsia; J45.909 Unspecified asthma, uncomplicated; R73.9 Hyperglycemia, unspecified; E78.5 Hyperlipidemia, unspecified; R74.01 Elevation of levels of liver transaminase levels; I49.3 Ventricular premature depolarization; I11.0 Hypertensive heart disease with heart failure
CPT/HCPCS: 76937; 80053; 80061; 83036; 84484; 85025; 85027; 85347; 85610; 92978; 93005; 93306; 93458; 94640; 99152; 99153; 99285; C1725; C1753; C1874; C1894; C9600; Q9967

== ENCOUNTER 2024-09-28 17:54 | Outpatient (RCR) | payer OTHER, SELFPAY | END 2024-09-28 23:59 | disposition home or self-care (01) | LOC: CRHB 17:54 | PROVIDERS: ATTENDING PHYSICIAN Internal Medicine Interventional Cardiology | DX: I21.01 ST elevation (STEMI) myocardial infarction involving left main coronary artery (principal); I25.10 Atherosclerotic heart disease of native coronary artery without angina pectoris (principal); I25.2 Old myocardial infarction; Z95.5 Presence of coronary angioplasty implant and graft; Z95.2 Presence of prosthetic heart valve | CPT/HCPCS: G0422; G0423 ==

== ENCOUNTER 2024-10-30 18:06 | Outpatient (RCR) | payer OTHER, SELFPAY | END 2024-10-30 23:59 | disposition home or self-care (01) | LOC: CRHB 18:06 | PROVIDERS: ATTENDING PHYSICIAN Internal Medicine Interventional Cardiology | DX: I21.01 ST elevation (STEMI) myocardial infarction involving left main coronary artery (principal); I25.10 Atherosclerotic heart disease of native coronary artery without angina pectoris; Z95.5 Presence of coronary angioplasty implant and graft; I25.2 Old myocardial infarction; Z95.2 Presence of prosthetic heart valve | CPT/HCPCS: G0422; G0423 ==

== ENCOUNTER 2024-11-09 17:59 | Outpatient (RCR) | payer OTHER, SELFPAY | END 2024-11-09 23:59 | disposition home or self-care (01) | LOC: CRHB 17:59 | PROVIDERS: ATTENDING PHYSICIAN Internal Medicine Interventional Cardiology | DX: I25.10 Atherosclerotic heart disease of native coronary artery without angina pectoris (principal); Z95.5 Presence of coronary angioplasty implant and graft; I25.2 Old myocardial infarction | CPT/HCPCS: G0422 ==

== ENCOUNTER 2024-12-30 18:21 | Outpatient (RCR) | payer OTHER, SELFPAY | END 2024-12-30 23:59 | disposition home or self-care (01) | LOC: CRHB 18:21 | PROVIDERS: ATTENDING PHYSICIAN Internal Medicine Interventional Cardiology | DX: I25.10 Atherosclerotic heart disease of native coronary artery without angina pectoris (principal); Z95.5 Presence of coronary angioplasty implant and graft; I25.2 Old myocardial infarction | CPT/HCPCS: G0422 ==

== ENCOUNTER 2025-01-06 06:18 | Outpatient (RCR) | payer OTHER, SELFPAY | END 2025-01-13 16:21 | disposition home or self-care (01) | LOC: CRHB 06:18 | PROVIDERS: ATTENDING PHYSICIAN Internal Medicine Interventional Cardiology | DX: I25.10 Atherosclerotic heart disease of native coronary artery without angina pectoris (principal); Z95.5 Presence of coronary angioplasty implant and graft; I25.2 Old myocardial infarction; I10 Essential (primary) hypertension; E78.5 Hyperlipidemia, unspecified | CPT/HCPCS: G0422 ==